=== PATIENT | male | born 1975 | race Caucasian/White ===

== ENCOUNTER 2020-11-24 16:04 | Emergency (ER) | payer OTHER ==
[~2020-11-24] VITALS: Ht 177.8 cm; Wt 148.3 kg
[2020-11-24 16:25] VITALS: BP 148/91
--- NOTE | 2020-11-24 16:55 | PHYS DOC ---
Past History Past Medical History Degenerative disc disease of lumbar spine Past Surgical History: Other (Nerve stimulator to lumbar spine) Adult General Chief Complaint Chief Complaint: BACK PAIN OR INJURY HPI HPI Patient is a 45-year-old male presenting for back pain. This is an acute on chronic problem. He has known degenerative disc disease of lumbar spine and is well followed in outpatient setting for this. He has prior nerve stimulator placed in his back for pain, states he has significant relief from this since placement in addition to Flexeril which he uses as needed. Reports he has no other significant intervention to his spine such as fusion or other surgical intervention. Reports yesterday sitting in recliner chair. Flexed forward and attempted to twist to his left to get up and out of the chair when he felt a pop in his lower back. Reports having focal pain over central/midline L2 area with sciatic type nerve pain originating in right butt cheek and radiating posteriorly to right posterior knee. He has taken his Flexeril as prescribed without significant relief. He is also utilize ibuprofen per bottle instr uctions without significant relief. Has no other concerning/red flag signs or symptoms of back pain such as fever, history drug use, chronic steroid use, weight loss, no saddle anesthesia, no bladder or bowel incontinence etc. Review of Systems Review of Systems Fourteen body systems of review of systems have been reviewed. See HPI for pertinent positives and negative responses, other alex all other systems are negative, non-pertinent or non-contributory Allergies Allergies Allergies Coded Allergies Type Severity Reaction Last Updated Verified No Known Drug Allergies 11/24/20 No Physical Exam Physical Exam Constitutional: Well developed, well nourished, no acute distress, appears in pain, non-toxic appearance. HENT: Normocephalic, atraumatic, bilateral external ears normal, oropharynx moist, no oral exudates, nose normal. Eyes: PERRLA, EOMI, conjunctiva normal, no discharge. Neck: Normal range of motion, no tenderness, supple, no stridor. Cardiovascular: Heart rate regular, sinus rhythm, no murmurs rubs or gallops Lungs & Thorax: Bilateral breath sounds clear to auscultation Abdomen: Bowel sounds normal, soft, no tenderness, no masses, no pulsatile masses. Nonsurgical abdomen, no peritoneal signs Skin: Warm, dry, no erythema, no rash. Back: No CVA tenderness. Point tenderness over lumbar spine at L2 level, prior nerve stimulator felt subdermally with palpation over right paralumbar region, tenderness with palpation deep to right superior gluten and right paralumbar muscles Extremities: No tenderness, no cyanosis, no clubbing, ROM intact, no edema. Neurologic: Alert and oriented X 3, no saddle anesthesia, normal motor & sensory function, no focal deficits noted, bilateral lower extremity patellar reflexes equal 2+. Psychologic: Affect normal, judgement normal, mood normal. Current Patient Data Vital Signs Vital Signs Date Time Temp Pulse Resp B/P (MAP) Pulse Ox O2 Delivery O2 Flow Rate FiO2 11/24/20 16:25 98.1 102 20 148/91 (110) 96 Room Air Vital Signs Date Time Temp Pulse Resp B/P (MAP) Pulse Ox O2 Delivery O2 Flow Rate FiO2 11/24/20 17:01 16 Room Air 11/24/20 16:25 98.1 102 148/91 (110) 96 EKG EKG [] Radiology/Procedures Radiology/Procedures XR LUMBAR SPINE 2-3V 11/24/2020 4:33 PM Indication: Twisting mechanism injury. Pain radiates down both legs COMPARISON: None available TECHNIQUE: 3 views of the lumbar spine are provided. Findings: Alignment of the lumbar spine is normal. There are 5 nonrib-bearing lumbar type vertebral bodies. Vertebral body heights are maintained. No acute fracture is identified. Battery pack with partially profiled epidural leads are noted. Disc heights are maintained. No significant endplate degenerative changes are identified. There is no significant facet arthropathy. No significant osseous neuroforaminal stenosis or spinal canal stenosis. Nonobstructive bowel gas pattern. Visualized portions of the sacrum appear intact. Impression: No acute fracture or malalignment of the lumbar spine. Electronically signed by: Teena Lezama MD (11/24/2020 5:00 PM) [facility] Heart Score C/O Chest Pain: No HEART Score for Chest Pain: HEART Score for Chest Pain Response (Comments) Value History Slighlty/Non-Suspicious 0 Age < 45 0 Risk Factors No Risk Factors 0 Total 0 Risk Factors: Risk Factors: DM, Current or recent (<one month) smoker, HTN, HLP, family history of CAD, obesity. Risk Scores: Risk Factors: DM, Current or recent (<one month) smoker, HTN, HLP, family history of CAD, obesity. Course & Med Decision Making Course & Med Decision Making Hemodynamically stable patient with history of back issues, physical exam concerning for midline tenderness and sciatic type pain, radiographs of lumbar spine nonconcerning for any acute abnormality P.o. [place] administered while in ER with improvement in symptoms. There are no red flag signs or symptoms indicating further need for ER intervention and/or work-up Continued supportive care advised. He is knowledgeable on exercises, how to erick e ibuprofen, utilizing his home Flexeril etc. He has good PCP follow-up. Patient already has chronic pain medication for his back, I do not want to jeopardize current pain contract in process, advised him to utilize ibuprofen scheduled until he can talk to his prescribing physician tomorrow regarding altering chronic pain medication regiment Strict return precautions were discussed with good understanding by patient, all questions and concerns addressed prior to ER departure Dragon Disclaimer Dragon Disclaimer This electronic medical record was generated, in whole or in part, using a voice recognition dictation system. Departure Departure: Impression: Primary Impression: Lower back pain Disposition: 01 DC HOME SELF CARE/HOMELESS Condition: STABLE Referrals: ZORAIDA CARTER (PCP) Patient Instructions: Back Exercises, [id number], Back Injury Prevention Additional Instructions: You were evaluated in the Emergency Department today for back pain. Your evaluation suggests no acute abnormalities which require further intervention at this time. Your pain is most likely due to to a musculoskeletal cause that should improve with supportive care. - Move around as tolerated but avoiding heavy lifting. ``Bed rest is not recommended nor is it the best treatment for low back pain. - Medications will help control your discomfort: - -Ibuprofen (800 mg every 8 hours for pain) with food. - -Tylenol - Do not drink alcohol, drive a car, operate machinery, or get up on ladders or heights when taking any prescribed pain medications. - Do not drive home if you received prescribed pain medications here in the ED. Return to the ED immediately if you develop any of the following problems: - Leaking urine or difficulty urinating; - Inability to control your bowels; - New numbness or weakness in your legs or numbness between your legs; - Inability to walk - Fever SHARAD HOBSON DO Nov 24, 2020 16:55
[2020-11-24] MEDS ORDERED: HYDROcodone/APAP 5/325MG 1 TAB TABLET PO ONE (17:00)
--- NOTE | 2020-11-24 17:03 | RAD ---
XR LUMBAR SPINE 2-3V 11/24/2020 4:33 PM Indication: Twisting mechanism injury. Pain radiates down both legs COMPARISON: None available TECHNIQUE: 3 views of the lumbar spine are provided. Findings: Alignment of the lumbar spine is normal. There are 5 nonrib-bearing lumbar type vertebral bodies. Jennie tebral body heights are maintained. No acute fracture is identified. Battery pack with partially prof iled epidural leads are noted. Disc heights are maintained. No significant endplate degenerative changes are identified. There is no significant facet arthropathy. No significant osseous neuroforaminal stenosis or spinal canal stenos is. Nonobstructive bowel gas pattern. Visualized portions of the sacrum appear intact. Impression: No acute fracture or malalignment of the lumbar spine. Electronically signed by: Teena Lezama MD (11/24/2020 5:00 PM) [facility]
== END 2020-11-24 17:17 | disposition home or self-care (01) ==
LOC: ER 16:04
DX: M54.5 Low back pain (principal); G89.29 Other chronic pain
CPT/HCPCS: 72100; 99283

== ENCOUNTER 2022-01-11 18:18 | Emergency (ER) | payer OTHER ==
[~2022-01-11] VITALS: Ht 177.8 cm; Wt 148.3 kg
[2022-01-11 18:34] VITALS: BP 123/98
--- NOTE | 2022-01-11 18:51 | PHYS DOC ---
Past History Past Medical History: Anxiety, Depression, Diabetes, Hypertension, Other Additional Past Medical Histor: LOWER LUMBAR PROBLEMS, PTSD (JANINE ALVAREZ APRN) Past Surgical History: Other Additional Past Surgical Histo: NERVER STIMULATOR LOWER BACK, LEFT WRIST, ABLATIONS LOWER BACK (JANINE ALVAREZ APRN) Alcohol Use: None (JANINE ALVAREZ APRN) General Adult EDM: Chief Complaint: BACK PAIN OR INJURY HPI: HPI: Patient is a 46-year-old male who presents to the emergency department for thoracic and lumbar back pain that he rates 6 out of 10. The pain does radiate down into his buttock. He reports that he has chronic back pain and has impl ants as well as herniated disks and pinched nerves. He reports that he has an appointment to see his neurosurgeon in 10 days. He states that this afternoon he was power washing his deck when he slipped on the water and fell on his back down 3 steps. He took Advil and Tylenol this afternoon. He denies any urinary symptoms, loss of bowel or bladder or saddle anesthesias. (JANINE ALVAREZ APRN) Review of Systems: Review of Systems: GI: See HPI : See HPI Musculoskeletal: See HPI Neurologic: See HPI (JANINE ALVAREZ APRN) Current Medications: Current Meds: Current Medications Medications (Trade) Dose Ordered Sig/Suman Start Time Stop Time Status Last Admin Dose Admin Acetaminophen/ Hydrocodone Bitart (Lortab 5/325) 1 tab 1X ONCE 01/11/22 18:45 01/11/22 18:46 UNV Ketorolac Tromethamine (Toradol Im) 60 mg 1X ONCE 01/11/22 18:45 01/11/22 18:46 UNV (JANINE ALVAREZ APRN) Allergies: Allergies: Allergies Coded Allergies Type Severity Reaction Last Updated Verified No Known Drug Allergies 11/24/20 No (JANINE ALVAREZ APRN) Physical Exam: PE: Constitutional: Well developed, well nourished, no acute distress, non-toxic appearance. [] HENT: Normocephalic, atraumatic, bilateral external ears normal, oropharynx moist, no oral exudates, nose normal. [] Eyes: PERRL, EOMI, conjunctiva normal, no discharge. [] Neck: Normal range of motion, no bony spinal tenderness, supple, no stridor. [] Cardiovascular:Heart rate regular rhythm, no murmur [] Lungs & Thorax: Bilateral breath sounds clear to auscultation [] Abdomen: Soft and flat Skin: Warm, dry, no erythema, no rash. [] Back: Lower thoracic bony spinal tenderness and lumbar bony spinal tenderness with palpation, no deformities palpated, no CVA tenderness., Positive straight leg raise [] Extremities: No tenderness, no cyanosis, no clubbing, ROM intact, no edema. [] Neurologic: Alert and oriented X 3, normal motor function, normal sensory function, no focal deficits noted. [] Psychologic: Affect normal, judgement normal, mood normal. [] (JANINE ALVAREZ APRN) Current Patient Data: Vital Signs: Vital Signs Date Time Temp Pulse Resp B/P (MAP) Pulse Ox O2 Delivery O2 Flow Rate FiO2 01/11/22 18:34 97.8 78 18 123/98 (106) 100 Room Air (JANINE ALVAREZ APRN) EKG: EKG: [] (JANINE ALVAREZ APRN) Radiology/Procedures: Radiology/Procedures: []PROCEDURE: CT THORACIC SPINE WO CONTRAST Exam: CT thoracolumbar spine INDICATION: Fall, Back pain TECHNIQUE: Sequential axial images through the thoracic and lumbar spine obtained without IV contrast. Sagittal and coronal reformatted images were reconstructed from the axial data and reviewed. Exposure: One or more of the following in the visualized dose reduction techniques were utilized for this examination: 1. Automated exposure control 2. Adjustment of the MA and/or KV according to patient size 3. Use of iterative of reconstructive technique Comparisons: None FINDINGS: Thoracic spine: Vertebral body heights and alignment are well-maintained. Fracture to the thoracic spine is is not identified. There is a spinal cord stimulator which enters the posterior epidural space at T12-L1 with lead terminating at the T7 level. Minimal degenerative disc disease in the mid to lower thoracic spine without significant neural foraminal or spinal canal stenosis. There is tree-in-bud nodularity noted at the right upper lobe. Lumbar spine: Vertebral body heights and alignment are well-maintained. Fracture to the lumbar spine is not identified. Mild multilevel spondylotic change in the lumbar spine with degenerative disc disease greatest at L4-L5 and L5-S1. Mild bilateral facet arthropathy is also noted lumbar spine. Visualized paraspinal soft tissues are unremarkable. IMPRESSION: 1. Negative CT thoracic and lumbar spine for acute traumatic injury. 2. Tree-in-bud nodularity at the right upper lobe may be infectious or inflammatory in etiology. Follow-up imaging posttreatment to ensure resolution is recommended. Electronically signed by: Gabriele Norman MD (01/11/2022 7:53 PM) [facility] DICTATED AND SIGNED BY: GABRIELE NORMAN MD DATE: 01/11/221947 CC: ZORAIDA CARTER; JANINE ALVAREZ APRN ~ (JANINE ALVAREZ APRN) Heart Score: C/O Chest Pain: N/A Risk Factors: Risk Factors: DM, Current or recent (<one month) smoker, HTN, HLP, family history of CAD, obesity. Risk Scores: Score 0 - 3: 2.5% MACE over next 6 weeks - Discharge Home Score 4 - 6: 20.3% MACE over next 6 weeks - Admit for Clinical Observation Score 7 - 10: 72.7% MACE over next 6 weeks - Early Invasive Strategies (JANINE ALVAREZ APRN) Course & Med Decision Making: Course & Med Decision Making Pertinent Labs and Imaging studies reviewed. (See chart for details) [] Patient resents to the emergency department for thoracic and lumbar back pain. Patient does report he slipped and fell onto his back this afternoon. Imaging was performed of his thoracic and lumbar spine. Imaging did not show any acute findings. Patient's pain was treated in the ER. Patient has no cauda equina symptoms. He is able to bear weight and ambulate. Patient will be discharged home with pain medication he is advised to follow-up with his neurosurgeon as previously scheduled. I discussed with patient all findings and diagnostic testing as well as the need to follow-up with PCP for further evaluation and treatment or return to the ER if any new or worsening symptoms. Strict return precautions were also discussed at length. Patient voiced understanding and agreement with the plan. Patient is hemodynamically stable at the time of disposition. (JANINE ALVAREZ APRN) Course & Med Decision Making Did not see or evaluate patient. Did not discuss patient with SAFE TECHNICIAN. Generally agree with SAFE TECHNICIAN's work-up and disposition per note. (BARB MALDONADO MD) Dragon Disclaimer: Dragon Disclaimer: This electronic medical record was generated, in whole or in part, using a voice recognition dictation system. (JANINE ALVAREZ APRN) Departure Departure: Impression: Primary Impression: Back pain Qualified Codes: M54.42 - Lumbago with sciatica, left side; M54.41 - Lumbago with sciatica, right side Disposition: 01 HOME / SELF CARE / HOMELESS Condition: GOOD Referrals: ZORAIDA CARTER (PCP) Patient Instructions: Back Pain, Adult Additional Instructions: You are seen in the emergency department today for back pain. Imaging was performed of your thoracic and lumbar spine which did not show any acute findings. You can apply ice or heat to any sore areas. You are being discharged home with pain medication. This medication is hydrocodone and Tyleno l and a combination tablet. This medication may cause sedation so do not take when you need to be alert, driving a vehicle or with alcohol. Please follow-up with your neurosurgeon as previously scheduled. Return to the emergency department if you develop any new injuries, inability to bear weight or walk, loss of bowel or bladder, numbness or tingling in your groin or down your legs or any new or worsening concerns. Scripts Hydrocodone Bit/Acetaminophen (HYDROCODONE-APAP 5-325 ) 1 Each Tablet 1 TAB PO PRN Q6HRS PRN for PAIN for 2 Days, #8 TAB 0 Refills Prov: JANINE ALVAREZ APRN 01/11/22 JANINE ALVAREZ APRN January 11, 2022 18:51 BARB MALDONADO MD January 16, 2022 19:42
[2022-01-11] MEDS: HYDROcodone/APAP 5/325MG 1 TAB TABLET PO ONE (19:08)
[2022-01-11] MEDS: KETOROLAC 60 MG/2 ML VIAL. IM ONE (19:08)
--- NOTE | 2022-01-11 19:55 | RAD ---
Exam: CT thoracolumbar spine INDICATION: Fall, Back pain TECHNIQUE: Sequential axial images through the thoracic and lumbar spine obtained without IV contrast . Sagittal and coronal reformatted images were reconstructed from the axial data and reviewed. Exposure: One or more of the following in the visualized dose reduction techniques were utilized for this examination: 1. Automated exposure control 2. Adjustment of the MA and/or KV according to patient size 3. Use of iterative of reconstructive technique Comparisons: None FINDINGS: Thoracic spine: Vertebral body heights and alignment are well-maintained. Fracture to the thoracic spine is is not identified. There is a spinal cord stimulator which enters the posterior epidural space at T12-L1 with lead termi nating at the T7 level. Minimal degenerative disc disease in the mid to lower thoracic spine without significant neural andrzej inal or spinal canal stenosis. There is tree-in-bud nodularity noted at the right upper lobe. Lumbar spine: Vertebral body heights and alignment are well-maintained. Fracture to the lumbar spine is not identified. Mild multilevel spondylotic change in the lumbar spine with degenerative disc disease greatest at L4- L5 and L5-S1. Mild bilateral facet arthropathy is also noted lumbar spine. Visualized paraspinal soft tissues are unremarkable. IMPRESSION: 1. Negative CT thoracic and lumbar spine for acute traumatic injury. 2. Tree-in-bud nodularity at the right upper lobe may be infectious or inflammatory in etiology. Fol low-up imaging posttreatment to ensure resolution is recommended. Electronically signed by: Gabriele Schumacher MD (01/11/2022 7:53 PM) [facility]
[2022-01-11] MEDS ORDERED: HYDR-2155 PO (20:02)
== END 2022-01-11 20:22 | disposition home or self-care (01) ==
LOC: ER 18:18
DX: M54.42 Lumbago with sciatica, left side (principal); M54.41 Lumbago with sciatica, right side; M54.6 Pain in thoracic spine; G89.29 Other chronic pain; E11.9 Type 2 diabetes mellitus without complications; I10 Essential (primary) hypertension; W01.0XXA Fall on same level from slipping, tripping and stumbling without subsequent striking against object, initial encounter; Y93.89 Activity, other specified; Y92.89 Other specified places as the place of occurrence of the external cause; Y99.8 Other external cause status
CPT/HCPCS: 72128; 72131; 96372; 99284; J1885